=== PATIENT | female | born 1960 | race Caucasian/White ===

== ENCOUNTER 2017-05-23 10:44 | Emergency (ER) | payer OTHER ==
[~2017-05-23] VITALS: Ht 170.2 cm; Wt 64.0 kg
[2017-05-23 10:50] VITALS: PULSE 80; RESP 16; TEMP 98.5; O2SAT 98
--- NOTE | 2017-05-23 11:42 | PD ---
HPI Chief Complaint: Cold / Flu Symptoms Time Seen by Provider: 11:29 Travel History International Travel<30 days: No Contact w/Intl Traveler<30days: No Traveled to known affect area: No History of Present Illness HPI This 56-year-old female that she went to [place] for a wedding last weekend. She had a tickle in her throat while she was there. Yesterday she had a dry cough. She started having some pain in her left flank. She has taken some ibuprofen and it seemed to get a bit better than she had some pain in her right flank. She has a history of kidney stones. Last night she was feeling shaky and very cold. This morning the room was spinning and she got very lightheaded. She thought she was going to pass out. She did not have any chest pain or palpitations. PFSH Past Medical History Kidney Stones: Yes Tetanus Vaccination: > 5 Years Influenza Vaccination: No ?: Not Tubal Ligation: Yes Past Surgical History Abdominal Surgery: Yes (HERNIA REPAIR) Cholecystectomy: Yes Hysterectomy: Yes Social History Alcohol Use: Yes (SOCIAL) Tobacco Use: No Substance Use: No Allergies-Medications (Allergen,Severity, Reaction): Coded Allergies: Penicillins (Verified Allergy, Unknown, 05/23/17) codeine (Verified Allergy, Unknown, 05/23/17) Reported Meds & Prescriptions Reported Meds & Active Scripts Active No Active Prescriptions or Reported Medications Review of Systems General / Constitutional: Positive: Fever, Chills Eyes: No: Diploplia, Blurred Vision HENT: No: Headaches, Vertigo Cardiovascular: No: Chest Pain or Discomfort Respiratory: Positive: Cough Genitourinary: Positive: Flank Pain Musculoskeletal: No: Myalgias, Arthralgias Skin: No Rash, No Itching Neurologic: No: Weakness Psychiatric: No: Anxiety Endocrine: No: Heat Intolerance Hematologic/Lymphatic: No: Easy Bruising Physical Exam Narrative GENERAL: Well-developed female SKIN: Focused skin assessment warm/dry. HEAD: Atraumatic. Normocephalic. EYES: Pupils equal and round. No scleral icterus. No injection or drainage. ENT: No nasal bleeding or discharge. Mucous membranes pink and moist. Right tympanic membrane is normal. Examination of the left ear shows a small pimple in the canal NECK: Trachea midline. No JVD. CARDIOVASCULAR: Regular rate and rhythm. No murmur appreciated. RESPIRATORY: No accessory muscle use. Clear to auscultation. Breath sounds equal bilaterally. GASTROINTESTINAL: Abdomen soft, non-tender, nondistended. Hepatic and splenic margins not palpable. MUSCULOSKELETAL: No obvious deformities. No clubbing. No cyanosis. No edema. NEUROLOGICAL: Awake and alert. No obvious cranial nerve deficits. Motor grossly within normal limits. Normal speech. PSYCHIATRIC: Appropriate mood and affect; insight and judgment normal. Data Data Last Documented VS Vital Signs Date Time Temp Pulse Resp B/P (MAP) Pulse Ox O2 Delivery O2 Flow Rate FiO2 05/23/17 11:09 Room Air 05/23/17 10:50 98.5 80 16 98 Orders Orders Complete Blood Count With Diff (05/23/17 11:38) Basic Metabolic Panel (Bmp) (05/23/17 11:38) Urinalysis - C+S If Indicated (05/23/17 11:38) Influenzae A/B Antigen (05/23/17 11:38) Sodium Chlor 0.9% 1000 Ml Inj (Ns 1000 M (05/23/17 11:45) Labs Laboratory Tests Test 05/23/17 11:45 05/23/17 11:50 Urine Collection Type CLEAN CATCH Urine Color YELLOW Urine Turbidity CLEAR Urine pH 7.0 Urine Specific [place] 1.003 Urine Protein NEG mg/dL Urine Glucose (UA) NEG mg/dL Urine Ketones NEG mg/dL Urine Occult Blood NEG Urine Nitrite NEG Urine Bilirubin NEG Urine Leukocyte Esterase NEG Urine Squamous Epithelial Cells 0-5 /hpf Urine Transitional Epithelial Cells 0-5 /hpf Urine Amorphous Sediment SMALL Microscopic Urinalysis Comment CULT NOT INDICATED White Blood Count 6.0 TH/MM3 Red Blood Count 4.31 MIL/MM3 Hemoglobin 12.9 GM/DL Hematocrit 39.6 % Mean Corpuscular Volume 91.9 FL Mean Corpuscular Hemoglobin 29.9 PG Mean Corpuscular Hemoglobin Concent 32.5 % Red Cell Distribution Width 12.9 % Platelet Count 318 TH/MM3 Mean Platelet Volume 7.9 FL Neutrophils (%) (Auto) 68.5 % Lymphocytes (%) (Auto) 20.6 % Monocytes (%) (Auto) 9.9 % Eosinophils (%) (Auto) 0.4 % Basophils (%) (Auto) 0.6 % Neutrophils # (Auto) 4.2 TH/MM3 Lymphocytes # (Auto) 1.2 TH/MM3 Monocytes # (Auto) 0.6 TH/MM3 Eosinophils # (Auto) 0.0 TH/MM3 Basophils # (Auto) 0.0 TH/MM3 CBC Comment DIFF FINAL Differential Comment Blood Urea Nitrogen 9 MG/DL Creatinine 0.74 MG/DL Random Glucose 100 MG/DL Calcium Level 8.7 MG/DL Sodium Level 137 MEQ/L Potassium Level 3.8 MEQ/L Chloride Level 104 MEQ/L Carbon Dioxide Level 28.8 MEQ/L Anion Gap 4 MEQ/L Estimat Glomerular Filtration Rate 81 ML/MIN MDM Medical Decision Making Medical Screen Exam Complete: Yes Emergency Medical Condition: Yes Medical Record Reviewed: Yes Differential Diagnosis Differential includes UTI, influenza, viral syndrome Narrative Course Test for influenza is negative though this could of course be a false negative test. She is out of the window for Tamiflu. Her white count is normal. Urine is negative. She does have a small pimple in the ear canal and I will prescribe some Cortisporin. She also has asthma and I will prescribe albuterol though she is not wheezing at this time Diagnosis Primary Impression: Viral syndrome Scripts [id number] Otic Drops ([id number] Otic Drops) 1 % Soln 2 DROP LEFT EAR QID for Infection, #1 BOTTLE 0 Refills Prov: Graeme Lagunas MD 05/23/17 Albuterol 18 GM Inh (Ventolin Hfa 18 GM Inh) 90 Mcg/Act Aer 2 PUFF INH Q4-6H Y for SHORTNESS OF BREATH, #1 INHALER 0 Refills Prov: Graeme Lagunas MD 05/23/17 Disposition: 01 DISCHARGE HOME Condition: Stable Graeme Lagunas MD May 23, 2017 11:42
[2017-05-23] MEDS ORDERED: SODIUM CHLOR 0.9% 1000 ML INJ 1,000 ML IV ONE (11:45)
[2017-05-23 12:02] LABS: AUTOMATED NEUTROPHIL # 4.2 TH/MM3 (1.8-7.7); BASOPHIL % 0.6 % (0.0-2.0); EOSINOPHIL % 0.4 % (0.0-4.0); HEMATOCRIT 39.6 % (35.0-46.0); HEMOGLOBIN 12.9 GM/DL (11.6-15.3); LYMPH % 20.6 % (9.0-44.0); LYMPHOCYTE # 1.2 TH/MM3 (1.0-4.8); MEAN CELL VOLUME 91.9 FL (80.0-100.0); MEAN CORPUSCULAR HEMOGLOBIN 29.9 PG (27.0-34.0); MEAN CORPUSCULAR HGB CONC 32.5 % (32.0-36.0); MEAN PLATELET VOLUME 7.9 FL (7.0-11.0); MONO % 9.9 % (0.0-8.0); MONOCYTE # 0.6 TH/MM3 (0-0.9); NEUT % 68.5 % (16.0-70.0); PLATELET COUNT 318 TH/MM3 (150-450); RED BLOOD COUNT 4.31 MIL/MM3 (4.00-5.30); RED CELL DISTRIBUTION WIDTH 12.9 % (11.6-17.2)
[2017-05-23 12:07] LABS: BILIRUBIN, URINE NEG (NEG); BLOOD, URINE NEG (NEG); GLUCOSE,URINE NEG (NEG); KETONE, URINE NEG (NEG); NITRITE,URINE NEG (NEG); URINE LEUKOCYTE ESTERASE NEG (NEG)
[2017-05-23 12:15] LABS: BICARBONATE 28.8 MEQ/L (21.0-32.0); CALCIUM 8.7 MG/DL (8.5-10.1)
[2017-05-23 12:18] LABS: CREATININE 0.74 MG/DL (0.50-1.00)
[2017-05-23 12:22] LABS: URINE COLOR YELLOW (YELLW/STRAW)
[2017-05-23 12:23] LABS: AMORPHOUS SEDIMENT, URINE SMALL; SQUAMOUS EPITHELIAL CELL URINE 0-5 /hpf (0-5)
[2017-05-23 12:24] LABS: TRANSITIONAL EPI CELLS, URINE 0-5 /hpf
[2017-05-23] MEDS ORDERED: VENTAER INH (12:38)
[2017-05-23] MEDS ORDERED: CORTI10A LEFT EAR (12:38)
[2017-05-23 12:55] VITALS: BP 101/51
== END 2017-05-23 13:01 | disposition home or self-care (01) ==
LOC: PHED 10:44
DX: B34.9 Viral infection, unspecified (principal); J45.909 Unspecified asthma, uncomplicated; H61.892 Other specified disorders of left external ear; Z87.442 Personal history of urinary calculi; Z88.0 Allergy status to penicillin; Z88.5 Allergy status to narcotic agent
CPT/HCPCS: 80048; 81001; 85025; 87804; 96360; 99284; J7030